=== PATIENT | female | born 1955 | race Caucasian/White ===

== ENCOUNTER 2017-08-09 00:25 | Observation (INO) | payer BC, OTHER ==
[~2017-08-09] VITALS: Ht 170.2 cm; Wt 102.0 kg
[2017-08-09] VITALS (9 sets, daily range): BP systolic 131–198; BP diastolic 78–112; PULSE 55–85; TEMP 36.5–36.7; O2SAT 94–97; BMI 35.6
[2017-08-09] MEDS ORDERED: GLC/500 PO (01:33)
[2017-08-09 01:42] LABS: BASO % 0.4 %; BASO ABS # 0.04 K/uL (0-0.2); EOS % 2.3 %; EOS ABS # 0.22 K/uL (0-0.5); HEMATOCRIT 42.1 % (37-47); HEMOGLOBIN 14.4 g/dL (12.0-16.0); IG# 0.03 K/uL (0.00-0.02); LYMPH % 20.1 %; LYMPH ABS # 1.89 K/uL (1.2-3.4); MEAN CELL VOLUME 85.4 fL (80-100); MEAN CORPUSCULAR HEMOGLOBIN 29.2 pg (25-34); MEAN CORPUSCULAR HGB CONC 34.2 g/dl (32-36); MONO % 6.9 %; MONO ABS # 0.65 K/uL (0.11-0.59); NEUT ABS # 6.55 K/uL (1.4-6.5); PLATELET COUNT 310 K/uL (130-400); RED CELL DISTRIBUTION WIDTH CV 12.6 % (11.5-14.5); RED CELL DISTRIBUTION WIDTH SD 38.9 fL (36.4-46.3); WHITE BLOOD COUNT 9.38 K/uL (4.8-10.8)
[2017-08-09 02:20] LABS: ALBUMIN 3.6 gm/dl (3.4-5.0); ALKALINE PHOSPHATASE 91 U/L (45-117); ALT/SGPT 31 U/L (12-78); AST/SGOT 17 U/L (15-37); BLOOD UREA NITROGEN 15 mg/dl (7-18); CALCIUM 8.2 mg/dl (8.5-10.1); CARBON DIOXIDE 26 mmol/L (21-32); CKMB 3.8 ng/ml (0.5-3.6); CREATININE 1.04 mg/dl (0.60-1.20); GLUCOSE 363 mg/dl (70-99); POTASSIUM 3.8 mmol/L (3.5-5.1); SODIUM 135 mmol/L (136-145); TOTAL PROTEIN 7.3 gm/dl (6.4-8.2)
[2017-08-09 02:22] LABS: INFLUENZA B ANTIGEN Neg for Influ B (NEG)
[2017-08-09] MEDS ORDERED: INSULIN GLARGINE SOLOSTAR 100 UNITS/ML 3 ML PEN SC ONE ×2 (02:57→08:05)
[2017-08-09] MEDS ORDERED: NSS + 20MEQ KCL 1000ML 1,000 ML IV SCH ×2 (03:00→04:45)
[2017-08-09] MEDS ORDERED: LISINOPRIL 5 MG TAB PO ONE (03:28)
[2017-08-09] MEDS ORDERED: ALBUT/IPRATROP 3MG/0.5MG NEB 3 ML VIAL INH STA (03:44)
[2017-08-09] MEDS ORDERED: GLUCAGON FOR INJ 1 MG VIAL SQ PRN (03:45)
[2017-08-09] MEDS ORDERED: MoRPHine SULFATE 4 MG/ML 1 ML CARP\\VIAL IV PRN (03:45)
[2017-08-09] MEDS ORDERED: PROCHLORPERAZINE INJ 5 MG in SYRINGE 4 ML IV PRN (03:45)
[2017-08-09] MEDS ORDERED: TRAMADOL HCL 50 MG TAB PO PRN (03:45)
[2017-08-09] MEDS ORDERED: LORAZEPAM 2 MG/ML 1 ML VIAL IV PRN (03:45)
[2017-08-09] MEDS ORDERED: NITROGLYCERIN 0.4 MG SL PER TAB CHARGE SL PRN (03:45)
[2017-08-09] MEDS ORDERED: DEXTROSE 50% 50 ML SYR IV PRN (03:45)
[2017-08-09] MEDS ORDERED: GLUCOSE 40% GEL 15 GM TUBE PO PRN (03:45)
[2017-08-09] MEDS ORDERED: ACETAMINOPHEN 325 MG TAB PO PRN (03:45)
[2017-08-09] MEDS ORDERED: GLUCOSE 10 TABS/TUBE PO PRN (03:45)
[2017-08-09] MEDS ORDERED: INSULIN ASPART 100 UNITS/ML 3 ML PEN SC STA (04:03)
[2017-08-09] MEDS ORDERED: CALCIUM GLUCONATE 10% 1,000 MG in SODIUM CHLORIDE 0.9% 50ML 50 ML IV STA (04:03)
[2017-08-09 04:28] LABS: PTT PATIENT 27.4 SECONDS (21.0-31.0)
[2017-08-09] MEDS ORDERED: DOXYCYCLINE HYCLATE 100 MG CAP PO STA (04:35)
[2017-08-09] MEDS ORDERED: LISINOPRIL 5 MG TAB PO STA (04:35)
[2017-08-09] MEDS ORDERED: LORAZEPAM INJ 0.5 MG in SYRINGE 0.75 ML IV PRN (05:00)
[2017-08-09] MEDS ORDERED: OPTIRAY 320 IV PRN (05:00)
--- NOTE | 2017-08-09 07:09 | DIAGNOSTIC IMAGING REPORT ---
CT ANGIOGRAPHY OF THE CHEST, PULMONARY EMBOLUS PROTOCOL CLINICAL HISTORY: Chest pain, shortness of breath and cough. COMPARISON STUDY: Chest radiograph August 09, 2017. TECHNIQUE: Following IV administration of 93 mL of Optiray-320, helical axial images of the chest were obtained utilizing the pulmonary embolus protocol. Maximal intensity projections and sagittal and coronal reformats were viewed on an independent 3D workstation. IV contrast was administered without complication. A dose lowering technique was utilized adhering to the principles of ALARA. CT DOSE: 626.42 mGy.cm FINDINGS: No pulmonary emboli are identified. There is no evidence for thoracic aortic dissection. The heart is mildly enlarged. There is moderate coronary artery calcification. There is no pericardial effusion. No enlarged thoracic lymph nodes are present. There is mild lingular airspace opacity suggestive of pneumonia. Central airways are patent. There is no cavitation or pleural effusion. No pneumothorax is present. Bony thorax is unremarkable. Upper abdomen is unremarkable. There is mild esophageal wall thickening. IMPRESSION: 1. No pulmonary emboli identified. 2. Mild lingular consolidation consistent with pneumonia. 3. Mild circumferential esophageal wall thickening which may reflect esophagitis. Electronically signed by: Saravanan Nicolas M.D. 08/09/2017 7:08 AM Dictated Date/Time: 08/09/2017 7:02 AM
--- NOTE | 2017-08-09 07:10 | DIAGNOSTIC IMAGING REPORT ---
CHEST 2 VIEWS ROUTINE CLINICAL HISTORY: Cough and shortness of breath. COMPARISON STUDY: No previous studies for comparison. FINDINGS: Lung volumes are normal. No pneumothorax or pleural effusion is present. There is minimal left lower lung opacity. Right lung is clear. There is no evidence for pulmonary edema. Cardiac size is normal. Mediastinal contours are normal. IMPRESSION: Mild left lower lung opacity which could reflect pneumonia or atelectasis. Electronically signed by: Saravanan Nicolas M.D. 08/09/2017 7:08 AM Dictated Date/Time: 08/09/2017 7:08 AM
[2017-08-09] MEDS: LISINOPRIL 5 MG TAB PO SCH (07:31)
[2017-08-09] MEDS: ASPIRIN 325 MG ECTAB PO SCH (07:32)
[2017-08-09 07:42] LABS: HEMOGLOBIN A1C 12.3 % (4.5-5.6)
[2017-08-09] MEDS ORDERED: IV FLUIDS COMPLETED PRN (08:15)
--- NOTE | 2017-08-09 08:22 | EMERGENCY ROOM VISIT NOTE ---
History Report prepared by Keaton: Farhana Strickland Under the Supervision of: Dr. Carmelita Mesa D.O. First contact with patient: 00:39 Chief Complaint: RESPIRATORY PROBLEMS Stated Complaint: DIFFICULTY BREATHING Nursing Triage Summary: Chest congestion for a week, head congestion Friday, wheezing and dyspnea starting 2100. HTN. History of Present Illness The patient is a 62 year old female who presents to the Emergency Room with complaints of worsening respiratory problems starting an hour ago. The patient states that she has had chest congestion, but woke up with it moving into her head yesterday morning. She states that this evening she became short of breath and wheezy. She states that she felt like her chest felt heavy. The patient complains of a cough. The patient notes that her grand kids have been sick recently. The patient notes a history of white coat syndrome that leads to significant hypertension. Source of History: patient Onset: an hour ago Position: other (global) Quality: other (heaviness) Timing: worsening Associated Symptoms: + cough, No chest pain Note: The patient complains of nasal congestion. Review of Systems See HPI for pertinent positives & negatives. A total of 10 systems reviewed and were otherwise negative. Past Medical & Surgical Medical Problems: (1) Chest pain (2) HTN (hypertension) (3) Stroke Family History Diabetes mellitus Hypertension Social History Smoking Status: Never Smoker Marital Status: Housing Status: lives with significant other Occupation Status: employed Current/Historical Medications Scheduled Metformin Hcl (Glucophage), 500 MG PO BID Allergies Coded Allergies: No Known Allergies (Unverified , 08/09/17) Physical Exam Vital Signs Date Time Temp Pulse Resp B/P (MAP) Pulse Ox O2 Delivery O2 Flow Rate FiO2 08/09/17 02:13 78 20 165/106 96 08/09/17 01:31 81 20 174/ 92 08/09/17 00:55 81 08/09/17 00:52 91 26 219/109 93 Room Air 08/09/17 00:31 36.7 96 20 212/125 98 Room Air Physical Exam HEENT: Head - normocephalic and atraumatic Pupils are equal, round, and reactive to light. Extraocular eye muscles are intact, and sclera are anicteric. Nose - moist nasal mucosa without discharge. Mouth - moist buccal mucosa. Oropharynx is nonerythematous and there is no tonsillar exudate or edema noted. Neck: Supple; no JVD, nuchal rigidity, cervical lymphadenopathy, or auscultated bruits. Heart: Tachycardic rate and regular rhythm. There is a normal S1 and S2 with no murmurs, clicks, or gallops appreciated. Lungs: Clear to auscultation bilaterally with no wheezes, rales, or rhonchi. Abdomen: Soft, completely nontender, nondistended, with good bowel sounds. There are no palpable pulsatile masses or hepatosplenomegaly. There is no guarding, rigidity, or rebound noted. Extremities: No evidence of cyanosis, clubbing, or edema. There are easily palpable peripheral pulses. Skin: warm and dry with good turgor and no rashes. Medical Decision & Procedures ER Provider Diagnostic Interpretation: CHEST X-RAY: The results were interpreted by me. No obvious pulmonary infiltrate or consolidation. Moderate peribronchial cuffing with some haziness in the left lower lobe. Laboratory Results 08/09/17 01:20 Red Blood Count 4.93, Mean Corpuscular Volume 85.4, Mean Corpuscular Hemoglobin 29.2, Mean Corpuscular Hemoglobin Concent 34.2, Mean Platelet Volume 10.0, Neutrophils (%) (Auto) 70.0, Lymphocytes (%) (Auto) 20.1, Monocytes (%) (Auto) 6.9, Eosinophils (%) (Auto) 2.3, Basophils (%) (Auto) 0.4, Neutrophils # (Auto) 6.55, Lymphocytes # (Auto) 1.89, Monocytes # (Auto) 0.65, Eosinophils # (Auto) 0.22, Basophils # (Auto) 0.04 08/09/17 01:20 Test 08/09/17 01:20 White Blood Count 9.38 K/uL (4.8-10.8) Red Blood Count 4.93 M/uL (4.2-5.4) Hemoglobin 14.4 g/dL (12.0-16.0) Hematocrit 42.1 % (37-47) Mean Corpuscular Volume 85.4 fL (80-100) Mean Corpuscular Hemoglobin 29.2 pg (25-34) Mean Corpuscular Hemoglobin Concent 34.2 g/dl (32-36) Platelet Count 310 K/uL (130-400) Mean Platelet Volume 10.0 fL (7.4-10.4) Neutrophils (%) (Auto) 70.0 % Lymphocytes (%) (Auto) 20.1 % Monocytes (%) (Auto) 6.9 % Eosinophils (%) (Auto) 2.3 % Basophils (%) (Auto) 0.4 % Neutrophils # (Auto) 6.55 K/uL (1.4-6.5) Lymphocytes # (Auto) 1.89 K/uL (1.2-3.4) Monocytes # (Auto) 0.65 K/uL (0.11-0.59) Eosinophils # (Auto) 0.22 K/uL (0-0.5) Basophils # (Auto) 0.04 K/uL (0-0.2) RDW Standard Deviation 38.9 fL (36.4-46.3) RDW Coefficient of Variation 12.6 % (11.5-14.5) Immature Granulocyte % (Auto) 0.3 % Immature Granulocyte # (Auto) 0.03 K/uL (0.00-0.02) Activated Partial Thromboplast Time 27.4 SECONDS (21.0-31.0) Partial Thromboplastin Ratio 1.1 D-Dimer 540 ug/L FEU (0-500) Anion Gap 7.0 mmol/L (3-11) Est Creatinine Clear Calc Drug Dose 68.3 ml/min Estimated GFR () 66.2 Estimated GFR (Non- 57.1 BUN/Creatinine Ratio 14.7 (10-20) Estimated Average Glucose 306 mg/dl Hemoglobin A1c 12.3 % (4.5-5.6) Calcium Level 8.2 mg/dl (8.5-10.1) Magnesium Level 1.8 mg/dl (1.8-2.4) Total Bilirubin 0.4 mg/dl (0.2-1) Aspartate Amino Transf (AST/SGOT) 17 U/L (15-37) Alanine Aminotransferase (ALT/SGPT) 31 U/L (12-78) Alkaline Phosphatase 91 U/L (45-117) Total Creatine Kinase 132 U/L (26-192) Creatine Kinase MB 3.8 ng/ml (0.5-3.6) Creatine Kinase MB Ratio 2.9 (0-3.0) Pro-B-Type Natriuretic Peptide 275 pg/ml (0-900) Total Protein 7.3 gm/dl (6.4-8.2) Albumin 3.6 gm/dl (3.4-5.0) Globulin 3.7 gm/dl (2.5-4.0) Albumin/Globulin Ratio 1.0 (0.9-2) Beta-Hydroxybutyric Acid 3.15 mg/dL (0.2-2.81) Thyroid Stimulating Hormone (TSH) 3.050 uIu/ml (0.300-4.500) Influenza Type A Antigen Neg for Influ A (NEG) Influenza Type B Antigen Neg for Influ B (NEG) Laboratory results per my review. Medications Administered Medications (Trade) Dose Ordered Sig/Arsen Route Start Time Stop Time Status Last Admin Dose Admin Insulin Glargine (Lantus Solostar Pen) 20 units 0257 ONCE SC 08/09/17 02:57 08/09/17 03:04 DC 08/09/17 03:48 20 UNITS ECG Indication: chest pain Rate (beats per minute): 87 Rhythm: normal sinus Findings: PAC, ST depression (leads 1, aVL, V4, V5, and V6) ED Course 0039: Past medical records reviewed. The patient was evaluated in room B2. A complete history and physical exam was performed. An IV lock was initiated and labs were drawn as above. A twelve-lead EKG was obtained as described above. The patient went for chest x-ray 0102: I interpreted the patient's EKG at this time. Vital signs remain stable. 0254: Discussed the patient's case with Dr. Tobias. The patient will be evaluated for further management. 0256: I reevaluated the patient and the chest pressure is gone. I went over everything with her. Medical Decision The patient is a 62 year old female who presents to the Emergency Room with complaints of worsening respiratory problems starting an hour ago. Differential diagnoses include bronchitis, DKA, pneumonia, CHF, influenza, cardiac ischemia. LABS: White blood cell 9.3 Stable H&H Negative influenza Blood sugar 363 with BHA of 3.15 Normal LFTs Normal renal function Negative cardiac enzymes BNP 275 ABG: PH 7.4 PCO 2.37 PO 2.75 Bicarb 24 No obvious acidosis This is a 62-year-old female patient who presents to the emergency department tonight complaining of increasing shortness of breath, cough, and chest heaviness. The patient was noted to have ST segment depression in the lateral leads. We have no previous EKG for comparison. We attempted to obtain one from [facility] but they haven't a record of an EKG being performed. The patient's chest heaviness seemed to subside on its own. Patient was significantly hypertensive while here in the ER. She was also significantly hyperglycemic with an elevated BHA. ABG was not consistent with DKA Medication Reconcilliation Current Medication List: was personally reviewed by me Blood Pressure Screening Patient's blood pressure: Elevated blood pressure Will be further monitored by the hospitalist. Consults Time Called: 025 Consulting Physician: Dr. Jatinder Geller Hospitalist Returned Call: 025 Discussed the patient's case with Dr. Tobias. The patient will be evaluated for further management. Impression Primary Impression: Chest heaviness Additional Impressions: Acute electrocardiogram changes Hyperglycemia Scribe Attestation The scribe's documentation has been prepared under my direction and personally reviewed by me in its entirety. I confirm that the note above accurately reflects all work, treatment, procedures, and medical decision making performed by me. Departure Information Dispostion Being Evaluated By Hospitalist Referrals No Doctor, Assigned (PCP) Patient Instructions My [facility] Problem Qualifiers
[2017-08-09] MEDS: ENOXAPARIN 40 MG/0.4 ML SYR SC SCH (08:47)
--- NOTE | 2017-08-09 08:56 | ECHOCARDIOGRAM REPORT ---
*NOTICE TO RECEIVING CONSTITUTION PARTY AGENCY This information is strictly Confidential and protected under [place] law. [place] law prohibits you from making any further disclosure of this information unless further disclosure is expressly permitted by the written consent of the person to whom it pertains or is authorized by law. A general authorization for the release of medical or other information is not sufficient for this purpose. Hospital accepts no responsibility if the information is made available to any other person, INCLUDING THE PATIENT. Interpretation Summary * Name: EMELY RUFF Study Date: 08/09/2017 06:23 AM BP: 198/88 mmHg * Patient Location: [facility] HR: 81 * : 1955 (M/d/yyyy) Gender: Female Height: 67 in * Age: 62 yrs Ethnicity: CA Weight: 227 lb * Ordering Physician: Conrad Tobias * Referring Physician: Self, Referred * Performed By: Yarelis More RDCS * * Reason For Study: Chest pain * BSA: 2.1 m2 * -- Conclusions -- * There is borderline concentric left ventricular hypertrophy. * The left ventricular wall motion is normal. * Ejection Fraction = 55-60%. * The right ventricle is normal in size and function. * Doppler findings do not suggest pulmonary hypertension. * Grade I diastolic dysfunction, (abnormal relaxation pattern). * Aortic valve sclerosis mild, without significant aortic valvular stenosis. * There is mild mitral annular calcification. * Significant mitral regurgitation is absent. * There is no mitral valve stenosis. Procedure Details * A complete two-dimensional transthoracic echocardiogram was performed (2D, M-mode, Doppler and color flow Doppler). Left Ventricle * The left ventricle is normal in size. * There is borderline concentric left ventricular hypertrophy. * Ejection Fraction = 55-60%. * Left ventricular systolic function is normal. * The left ventricular wall motion is normal. Right Ventricle * The right ventricle is normal in size and function. * The right ventricular systolic function is normal as assessed by tricuspid annular plane systolic excursion (TAPSE) (normal >1.5 cm). Atria * The left atrial size is normal. * Right atrial size is normal. * There is no evidence of atrial septal defect, but resolution does not allow assessment for a patent foramen ovale. Mitral Valve * There is mild mitral annular calcification. * There is no mitral valve stenosis. * Significant mitral regurgitation is absent. Tricuspid Valve * The tricuspid valve is normal. * There is no tricuspid stenosis. * Significant tricuspid regurgitation is absent. * Doppler findings do not suggest pulmonary hypertension. Aortic Valve * The aortic valve is trileaflet. * Aortic valve sclerosis mild, without significant aortic valvular stenosis. * Aortic stenosis is absent. * There is no significant aortic regurgitation. Pulmonic Valve * The pulmonary valve is not well seen, but the Doppler examination is normal without significant regurgitation or stenosis. Great Vessels * The aortic root and proximal ascending aorta are normal sized. Pericardium/Pleural * There is no pericardial effusion. Great Vessels * Normal inferior vena cava diameter and respiratory variation suggests normal central venous pressure. Left Ventricular Diastolic Function * Grade I diastolic dysfunction, (abnormal relaxation pattern). MMode 2D Measurements and Calculations IVSd 1.2 cm LVIDd 4.3 cm LVIDs 3.0 cm LVPWd 1.1 cm IVS/LVPW 1.1 FS 29.1 % EDV(Teich) 81.0 ml ESV(Teich) 35.5 ml EF(Teich) 56.2 % EDV(cubed) 77.0 ml ESV(cubed) 27.4 ml EF(cubed) 64.3 % LV mass(C)d 176.4 grams LV mass(C)dI 82.7 grams/m\S\2 SV(Teich) 45.5 ml SI(Teich) 21.3 ml/m\S\2 SV(cubed) 49.5 ml SI(cubed) 23.2 ml/m\S\2 Ao root diam 2.6 cm Ao root area 5.2 cm\S\2 ACS 2.3 cm LA dimension 3.9 cm asc Aorta Diam 2.8 cm LA/Ao 1.5 LVOT diam 2.0 cm LVOT area 3.0 cm\S\2 LVAd ap4 24.7 cm\S\2 LVLd ap4 7.5 cm EDV(MOD-sp4) 67.9 ml EDV(sp4-el) 68.6 ml LVAs ap4 15.1 cm\S\2 LVLs ap4 6.6 cm ESV(MOD-sp4) 30.0 ml ESV(sp4-el) 29.6 ml EF(MOD-sp4) 55.9 % EF(sp4-el) 56.9 % LVAd ap2 19.1 cm\S\2 LVLd ap2 6.4 cm EDV(MOD-sp2) 45.8 ml EDV(sp2-el) 48.2 ml LVAs ap2 11.2 cm\S\2 LVLs ap2 5.3 cm ESV(MOD-sp2) 19.5 ml ESV(sp2-el) 20.2 ml EF(MOD-sp2) 57.4 % EF(sp2-el) 58.1 % LVLd %diff -17.53 % EDV(MOD-bp) 58.9 ml LVLs %diff -24.48 % ESV(MOD-bp) 25.3 ml EF(MOD-bp) 57.1 % SV(MOD-sp4) 38.0 ml SI(MOD-sp4) 17.8 ml/m\S\2 SV(MOD-sp2) 26.3 ml SI(MOD-sp2) 12.3 ml/m\S\2 SV(MOD-bp) 33.6 ml SI(MOD-bp) 15.8 ml/m\S\2 SV(sp4-el) 39.0 ml SI(sp4-el) 18.3 ml/m\S\2 SV(sp2-el) 28.0 ml SI(sp2-el) 13.1 ml/m\S\2 Doppler Measurements and Calculations MV E max lila 79.3 cm/sec MV A max lila 88.4 cm/sec MV E/A 0.90 MV dec time 0.31 sec Ao V2 max 148.3 cm/sec Ao max PG 8.8 mmHg Ao max PG (full) 4.5 mmHg DIMA(V,A) 2.1 cm\S\2 DIMA(V,D) 2.1 cm\S\2 LV V1 max PG 4.3 mmHg LV V1 max 103.5 cm/sec PA V2 max 82.8 cm/sec PA max PG 2.7 mmHg PA acc slope 534.9 cm/sec\S\2 PA acc time 0.13 sec PI end-d lila 119.1 cm/sec TR max lila 116.5 cm/sec PA pr(Accel) 22.8 mmHg
[2017-08-09] MEDS ORDERED: INFLUENZA VIRUS QUAD VACCINE 0.5 ML SYR IM. ONE (09:00)
[2017-08-09] MEDS ORDERED: INFLUENZA ADMINISTRATION CHARGE ONE (09:00)
[2017-08-09] MEDS ORDERED: MAGNESIUM SULFATE 1GM / D5W 1 GM in PREMIXED IN D5W 100 ML IV ONE (09:30)
--- NOTE | 2017-08-09 10:08 | HISTORY & PHYSICAL EXAMINATION ---
DATE OF ADMISSION: 08/09/2017 PRIMARY CARE DOCTOR: Dr. Hawthorne. CHIEF COMPLAINT: Chest tightness and shortness of breath. HISTORY OF PRESENT ILLNESS: History obtained from patient, family, ER provider. Medical history is significant for CVA, hypertension (currently not on meds), DM2 on oral medications. In the last few days, the patient noted sinus congestion symptoms going to her chest, later complaining of chest tightness, cough productive of yellow sputum, unable to catch her breath. May have been around sick people. Denies flu-like symptoms. Chest tightness from congestion. Denies aspiration. Patient was brought to the Emergency Room. Initial chest tightness currently resolved. MEDICAL HISTORY: As above. She had a stroke in the right side of her body in 2006, where she was confined in [place]. No TPA. She stopped her lisinopril 6 months ago after PCP told her she could because her blood pressure had been good after significant weight loss. Patient thinks she suffers from "white coat hypertension. Usual blood sugars at home 130s as per patient. Admits to not taking her blood sugars regularly. Last hemoglobin A1c from last year was 6 as per patient. Has not had recent seasonal flu vaccines. HOME MEDICATIONS: Include aspirin, metformin. ALLERGIES: No known drug allergies. FAMILY HISTORY: Diabetes. 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 REVIEW OF SYSTEMS: As per history of present illness, all 10 systems reviewed, All other ROS negative. PHYSICAL EXAMINATION: VITAL SIGNS: Blood pressure was noted to be 212/125 later 160/80, AL 80, RR 24 T 37 sats 98% on room air. GENERAL: Noted to be slightly anxious. Obese, pleasant, no distress. SKIN: Normal color. Warm. HEENT: [place] palpebral conjunctivae. No ptosis. Dry mucosa. NECK: Short neck. Nontender. CHEST: No anterior chest wall tenderness. Occasional wheeze. HEART: Regular rate and rhythm. No murmur. ABDOMEN: Some distension and nontender. EXTREMITIES: No edema. No gross deformities. No tenderness. NEUROLOGIC: Coherent, no gross focality. LABORATORY DATA: Hemoglobin was noted to be 14.5, white cell count 9.38 platelets 310. Sodium noted to be 135, potassium 3.8, chloride 102, CO2 of 26, BUN 50, creatinine 1, and glucose 383. Normal anion gap. Troponin negative. D-dimer was abnormal. EKG as per my interpretation, 90, normal sinus rhythm, T-wave flattening in the lateral leads. PVCs. Chest x-ray as per my interpretation, atelectasis. ASSESSMENT: 1. Chest tightness, shortness of breath secondary to complicated bronchitis. No sepsis. Rule out pulmonary embolism 2. Hypertensive urgency secondary to illness, anxiety unknown control at home. Patient has been off home FREDI inhibitor the last 6 months because blood pressure has been good after losing weight as per patient account. 3. DM2 on oral meds. Blood sugars elevated. Unknown control at home. 4. History of cerebrovascular accident on ASA. PLAN: OBS PCU. Doxycycline. nebs CT chest, PE study. 2D echo RE chest tightness Patient agreeable to re-starting home lisinopril. Basal insulin, ISS BG goal 140-180 Check hemoglobin A1c. Diabetic education DVT prophylaxis, Lovenox subQ. Full code. MTDD
[2017-08-09] MEDS: INSULIN ASPART 100 UNITS/ML 3 ML PEN SC SCH ×3 (12:02→20:37)
[2017-08-09 16:41] LABS: INFLUENZA A PCR Neg for Influ A (NEG); INFLUENZA B PCR Neg for Influ B (NEG)
--- NOTE | 2017-08-09 16:49 | Progress Note ---
Medicine Progress Note Date & Time of Visit: Aug 09, 2017 at 13:40 . Subjective CC: Follow-up visit for pneumonia, elevated blood sugars, elevated blood pressure. HPI: Feels better. No fever. Cough improved. No chest pain. Blood sugars better. ROS: General- as noted above in HPI Resp- as noted above in HPI Cardiac- as noted above in HPI GI- no nausea, no vomiting, no diarrhea - no dysuria, no difficulty voiding . Objective Last 8 Hrs Date Time Temp Pulse Resp B/P (MAP) Pulse Ox O2 Delivery O2 Flow Rate FiO2 08/09/17 16:00 Room Air 08/09/17 15:19 36.6 79 18 163/93 (116) 96 Room Air 08/09/17 12:18 36.5 85 16 154/112 (126) 96 Room Air 08/09/17 12:00 Room Air Physical Exam: General- sitting in chair; no distress Lungs- few rhonchi; no respiratory distress Cardiovascular- RRR; no gallop; no JVD; no pretibial edema Abdomen- + bowel sounds, soft, nontender Extremities- no cyanosis; no calf tenderness Neuro- alert, oriented Skin- warm & dry . Laboratory Results: Last 24 Hours Test 08/09/17 00:00 08/09/17 01:20 08/09/17 03:50 08/09/17 04:10 Influenza Type A (RT-PCR) Neg for Influ A Influenza Type B (RT-PCR) Neg for Influ B White Blood Count 9.38 K/uL Red Blood Count 4.93 M/uL Hemoglobin 14.4 g/dL Hematocrit 42.1 % Mean Corpuscular Volume 85.4 fL Mean Corpuscular Hemoglobin 29.2 pg Mean Corpuscular Hemoglobin Concent 34.2 g/dl Platelet Count 310 K/uL Mean Platelet Volume 10.0 fL Neutrophils (%) (Auto) 70.0 % Lymphocytes (%) (Auto) 20.1 % Monocytes (%) (Auto) 6.9 % Eosinophils (%) (Auto) 2.3 % Basophils (%) (Auto) 0.4 % Neutrophils # (Auto) 6.55 K/uL Lymphocytes # (Auto) 1.89 K/uL Monocytes # (Auto) 0.65 K/uL Eosinophils # (Auto) 0.22 K/uL Basophils # (Auto) 0.04 K/uL RDW Standard Deviation 38.9 fL RDW Coefficient of Variation 12.6 % Immature Granulocyte % (Auto) 0.3 % Immature Granulocyte # (Auto) 0.03 K/uL Activated Partial Thromboplast Time 27.4 SECONDS Partial Thromboplastin Ratio 1.1 D-Dimer 540 ug/L FEU Sodium Level 135 mmol/L Potassium Level 3.8 mmol/L Chloride Level 102 mmol/L Carbon Dioxide Level 26 mmol/L Anion Gap 7.0 mmol/L Blood Urea Nitrogen 15 mg/dl Creatinine 1.04 mg/dl Est Creatinine Clear Calc Drug Dose 68.3 ml/min Estimated GFR () 66.2 Estimated GFR (Non- 57.1 BUN/Creatinine Ratio 14.7 Random Glucose 363 mg/dl Estimated Average Glucose 306 mg/dl Hemoglobin A1c 12.3 % Calcium Level 8.2 mg/dl Magnesium Level 1.8 mg/dl Total Bilirubin 0.4 mg/dl Aspartate Amino Transf (AST/SGOT) 17 U/L Alanine Aminotransferase (ALT/SGPT) 31 U/L Alkaline Phosphatase 91 U/L Total Creatine Kinase 132 U/L Creatine Kinase MB 3.8 ng/ml Creatine Kinase MB Ratio 2.9 Troponin I < 0.015 ng/ml Pro-B-Type Natriuretic Peptide 275 pg/ml Total Protein 7.3 gm/dl Albumin 3.6 gm/dl Globulin 3.7 gm/dl Albumin/Globulin Ratio 1.0 Beta-Hydroxybutyric Acid 3.15 mg/dL Thyroid Stimulating Hormone (TSH) 3.050 uIu/ml Influenza Type A Antigen Neg for Influ A Influenza Type B Antigen Neg for Influ B Bedside Glucose 355 mg/dl Arterial Blood pH 7.42 Arterial Blood Partial Pressure CO2 37 mmHg Arterial Blood Partial Pressure O2 75 mm/Hg Arterial Blood HCO3 24 mmol/L Arterial Blood Oxygen Saturation 94.9 % Arterial Blood Base Excess -0.6 mEq/L Arterial Blood Gas Delivery ROOM AIR Leonardo Test POS Triglycerides Level 212 mg/dl Cholesterol Level 151 mg/dl HDL Cholesterol 28 mg/dl LDL Cholesterol, Calculated 81 mg/dl VLDL Cholesterol, Calculated 42 mg/dl Cholesterol/HDL Ratio 5.4 Test 08/09/17 04:57 08/09/17 05:13 08/09/17 06:48 08/09/17 08:00 Bedside Glucose 323 mg/dl 253 mg/dl Prothrombin Time 10.2 SECONDS Prothromb Time International Ratio 1.0 Troponin I < 0.015 ng/ml Test 08/09/17 11:22 Bedside Glucose 274 mg/dl Other Studies: EKG performed at 09:43 reviewed and demonstrated NSR at 80 / minute, PVC's, lateral inverted / biphasic T-waves. . Assessment & Plan PNEUMONIA Presented to ED with cough. Influenza Ag negative. Chest x-ray showed left mid-lung infiltrate. CT chest confirmed lingular infiltrate. CHEST DISCOMFORT Associated with coughing. Troponins negative. EKG showed non-specific ST / T-wave changes laterally. Echo showed mild LVH, no segmental wall motion abnormalities. CTA chest negative for PE. HYPERTENSIVE URGENCY History of "white coat hypertension." Had been on lisinopril in past, but it was discontinued.BP 212/125 in ED. Lisinopril restarted. BP this morning 160/88. Follow and titrate therapy. CEREBROVASCULAR DISEASE History of stroke several years ago. Not taking aspirin or statin at this time. ESOPHAGEAL THICKENING Mild esophageal wall thickening noted on CT chest. No reflux symptoms or dysphagia. Outpatient EGD recommended. DM TYPE 2 WITH HYPERGLYCEMIA History of DM type 2, reportedly well-controlled, managed with metformin at home. Random blood sugar in ED was 363. Hgb A1C = 12.3. Hold metformin during hospital stay. Lantus / NovoLog per protocol. FBS today = 253. VTE PROPHYLAXIS SQ enoxaparin. Ambulate. DISPOSITION Expected discharge to home. Medical follow-up with Dr. Hawthorne. . Current Inpatient Medications: Current Inpatient Medications Medications (Trade) Dose Ordered Sig/Arsen Route Start Time Stop Time Status Last Admin Dose Admin Aspirin (Ecotrin Tab) 325 mg QAM PO 08/09/17 09:00 09/08/17 08:59 08/09/17 07:32 325 MG Lisinopril (Zestril Tab) 5 mg QAM PO 08/09/17 09:00 09/08/17 08:59 08/09/17 07:31 5 MG Doxycycline Hyclate (Vibramycin Cap) 100 mg BID PO 08/09/17 21:00 08/16/17 20:59 Potassium Chloride/Sodium Chloride 1,000 ml @ 80 mls/hr [id number] IV 08/09/17 04:45 08/09/17 17:14 08/09/17 04:59 80 MLS/HR Enoxaparin Sodium (Lovenox Inj) 40 mg Q24H SC 08/09/17 08:00 09/08/17 07:59 08/09/17 08:47 40 MG Acetaminophen (Tylenol Tab) 650 mg Q4H PRN PO 08/09/17 03:45 09/08/17 03:44 Nitroglycerin (Nitrostat Tab) 0.4 mg UD PRN SL 08/09/17 03:45 09/08/17 03:44 Insulin Aspart (novoLOG ASPART) SLIDING SCALE If C... ACHS SC 08/09/17 11:00 09/08/17 10:59 08/09/17 12:02 7 UNITS Glucose (Glucose 40% Gel) 15-30 GRAMS 15 GRAMS... UD PRN PO 08/09/17 03:45 09/08/17 03:44 Glucose (Glucose Chew Tab) 4-8 Tablets 4 Tabl... UD PRN PO 08/09/17 03:45 09/08/17 03:44 Dextrose (Dextrose 50% 50ML Syringe) 25-50ML OF 50% DW IV FOR... UD PRN IV 08/09/17 03:45 09/08/17 03:44 Glucagon (Glucagon Inj) 1 mg UD PRN SQ 08/09/17 03:45 09/08/17 03:44 Lorazepam (Ativan Inj) 0.5 mg Q4H PRN IV 08/09/17 03:45 09/08/17 03:44 Tramadol HCl (Ultram Tab) not relieved ... Q6H PRN PO 08/09/17 03:45 09/08/17 03:44 Morphine Sulfate (MoRPHine SULFATE INJ) 4 mg Q3H PRN IV 08/09/17 03:45 08/23/17 03:44 Albuterol/ Ipratropium (Duoneb) 3 ml Q2H PRN INH 08/09/17 03:45 09/08/17 03:44 Prochlorperazine Edisylate 5 mg/ Syringe 5 ml @ 5 mls/min Q6H PRN IV 08/09/17 03:45 09/08/17 03:44 Ioversol (Optiray 320) 100 ml UD PRN IV 08/09/17 05:00 08/13/17 04:59 Lorazepam 0.5 mg/ Syringe 1 ml @ 1 mls/min Q4H PRN IV 08/09/17 05:00 09/08/17 04:59 Insulin Glargine (Lantus Solostar Pen) 40 units DAILY SC 08/10/17 09:00 09/09/17 08:59 Miscellaneous (Iv Fluids Completed) 1 ea PRN PRN N/A 08/09/17 08:15 08/09/18 08:14
[2017-08-09] MEDS: CEFTRIAXONE SOD INJ 2,000 MG in DEXTROSE 5% 50ML 50 ML IV SCH (17:57)
[2017-08-09] MEDS: DOXYCYCLINE HYCLATE 100 MG CAP PO SCH (20:37)
[2017-08-09] MEDS: INSULIN GLARGINE SOLOSTAR 100 UNITS/ML 3 ML PEN SC SCH (20:40)
[2017-08-09] MEDS ORDERED: COUGH DROP (SUGAR FREE) LOZ 24 LOZ/1 BOX LOZ ONE (20:43)
[2017-08-09] MEDS ORDERED: DOXYCYCLINE HYCLATE 100 MG CAP PO SCH (21:00)
[2017-08-10 07:08] VITALS: BP 154/82; PULSE 60; TEMP 36.3; O2SAT 97
[2017-08-10 07:13] LABS: BASO % 0.4 %; BASO ABS # 0.03 K/uL (0-0.2); EOS % 3.8 %; HEMATOCRIT 43.4 % (37-47); HEMOGLOBIN 14.7 g/dL (12.0-16.0); IG# 0.02 K/uL (0.00-0.02); LYMPH % 26.1 %; LYMPH ABS # 2.06 K/uL (1.2-3.4); MEAN CELL VOLUME 86.1 fL (80-100); MEAN CORPUSCULAR HEMOGLOBIN 29.2 pg (25-34); MEAN CORPUSCULAR HGB CONC 33.9 g/dl (32-36); MEAN PLATELET VOLUME 9.8 fL (7.4-10.4); MONO % 9.9 %; MONO ABS # 0.78 K/uL (0.11-0.59); NEUT % 59.5 %; PLATELET COUNT 316 K/uL (130-400); RED CELL DISTRIBUTION WIDTH CV 12.9 % (11.5-14.5); RED CELL DISTRIBUTION WIDTH SD 40.3 fL (36.4-46.3); WHITE BLOOD COUNT 7.89 K/uL (4.8-10.8)
[2017-08-10 07:46] LABS: CALCIUM 8.7 mg/dl (8.5-10.1); CREATININE 0.75 mg/dl (0.60-1.20); POTASSIUM 4.1 mmol/L (3.5-5.1)
[2017-08-10] MEDS: ENOXAPARIN 40 MG/0.4 ML SYR SC SCH (08:00)
[2017-08-10] MEDS: ASPIRIN 325 MG ECTAB PO SCH (08:24)
[2017-08-10] MEDS: LISINOPRIL 5 MG TAB PO SCH (08:24)
[2017-08-10] MEDS: DOXYCYCLINE HYCLATE 100 MG CAP PO SCH ×2 (08:25→20:26)
[2017-08-10] MEDS: INSULIN GLARGINE SOLOSTAR 100 UNITS/ML 3 ML PEN SC SCH ×2 (08:33→20:25)
[2017-08-10] MEDS: INSULIN ASPART 100 UNITS/ML 3 ML PEN SC SCH ×4 (08:33→20:24)
[2017-08-10] MEDS ORDERED: INSULIN GLARGINE SOLOSTAR 100 UNITS/ML 3 ML PEN SC SCH ×2 (09:00)
[2017-08-10 14:54] VITALS: BP 161/92; PULSE 56; TEMP 36.7; O2SAT 95
[2017-08-10] MEDS ORDERED: LEVALBUTEROL 0.63MG/3 ML NEB INH PRN (16:30)
[2017-08-10] MEDS ORDERED: LEVALBUTEROL 0.63MG/3 ML NEB INH ONE (16:30)
[2017-08-10 16:51] VITALS: PULSE 55; O2SAT 97
[2017-08-10] MEDS: CEFTRIAXONE SOD INJ 2,000 MG in DEXTROSE 5% 50ML 50 ML IV SCH (17:14)
--- NOTE | 2017-08-10 19:52 | Progress Note ---
Medicine Progress Note Date & Time of Visit: Aug 10, 2017 at 15:40 . Subjective CC: Follow-up visit for pneumonia, elevated blood sugars, elevated blood pressure. HPI: Feels better. No fever. Cough improved, but feels congested. No chest pain. Blood sugars better. ROS: General- as noted above in HPI Resp- as noted above in HPI Cardiac- as noted above in HPI GI- no nausea, no vomiting, no diarrhea - no dysuria, no difficulty voiding . Objective Last 8 Hrs Date Time Temp Pulse Resp B/P (MAP) Pulse Ox O2 Delivery O2 Flow Rate FiO2 08/10/17 16:51 55 16 97 Room Air 08/10/17 16:25 Room Air 08/10/17 14:54 36.7 56 18 161/92 (115) 95 Room Air Physical Exam: General- lying in bed; no distress Lungs- few rhonchi; no respiratory distress Cardiovascular- RRR; no gallop; no JVD; no pretibial edema Abdomen- + bowel sounds, soft, nontender Extremities- no cyanosis; no calf tenderness Neuro- alert, oriented Skin- warm & dry . Laboratory Results: Last 24 Hours Test 08/09/17 20:05 08/10/17 06:56 08/10/17 07:38 08/10/17 11:31 Bedside Glucose 165 mg/dl 228 mg/dl 278 mg/dl White Blood Count 7.89 K/uL Red Blood Count 5.04 M/uL Hemoglobin 14.7 g/dL Hematocrit 43.4 % Mean Corpuscular Volume 86.1 fL Mean Corpuscular Hemoglobin 29.2 pg Mean Corpuscular Hemoglobin Concent 33.9 g/dl Platelet Count 316 K/uL Mean Platelet Volume 9.8 fL Neutrophils (%) (Auto) 59.5 % Lymphocytes (%) (Auto) 26.1 % Monocytes (%) (Auto) 9.9 % Eosinophils (%) (Auto) 3.8 % Basophils (%) (Auto) 0.4 % Neutrophils # (Auto) 4.70 K/uL Lymphocytes # (Auto) 2.06 K/uL Monocytes # (Auto) 0.78 K/uL Eosinophils # (Auto) 0.30 K/uL Basophils # (Auto) 0.03 K/uL RDW Standard Deviation 40.3 fL RDW Coefficient of Variation 12.9 % Immature Granulocyte % (Auto) 0.3 % Immature Granulocyte # (Auto) 0.02 K/uL Sodium Level 137 mmol/L Potassium Level 4.1 mmol/L Chloride Level 106 mmol/L Carbon Dioxide Level 24 mmol/L Anion Gap 7.0 mmol/L Blood Urea Nitrogen 18 mg/dl Creatinine 0.75 mg/dl Est Creatinine Clear Calc Drug Dose 94.3 ml/min Estimated GFR () 98.3 Estimated GFR (Non- 84.8 BUN/Creatinine Ratio 23.9 Random Glucose 214 mg/dl Calcium Level 8.7 mg/dl Magnesium Level 2.0 mg/dl Test 08/10/17 16:31 Bedside Glucose 124 mg/dl Assessment & Plan PNEUMONIA Presented to ED with cough. Influenza Ag and PCR negative. Chest x-ray showed left mid-lung infiltrate. CT chest confirmed lingular infiltrate. Continue doxycycline and ceftriaxone. CHEST DISCOMFORT Associated with coughing. Troponins negative. EKG showed non-specific ST / T-wave changes laterally. Echo showed mild LVH, no segmental wall motion abnormalities. CTA chest negative for PE. HYPERTENSIVE URGENCY History of "white coat hypertension." Had been on lisinopril in past, but it was discontinued.BP 212/125 in ED. Lisinopril restarted. BP this morning 154/82. Follow and titrate therapy. CEREBROVASCULAR DISEASE History of stroke several years ago. Not taking aspirin or statin at this time. ESOPHAGEAL THICKENING Mild esophageal wall thickening noted on CT chest. No reflux symptoms or dysphagia. Outpatient EGD recommended. DM TYPE 2 WITH HYPERGLYCEMIA History of DM type 2, reportedly well-controlled, managed with metformin at home. Random blood sugar in ED was 363. Hgb A1C = 12.3. Hold metformin during hospital stay. Lantus / NovoLog per protocol. FBS today = 228. VTE PROPHYLAXIS SQ enoxaparin. Ambulate. DISPOSITION Expected discharge to home. Medical follow-up with Dr. Hawthorne. . Current Inpatient Medications: Current Inpatient Medications Medications (Trade) Dose Ordered Sig/Arsen Route Start Time Stop Time Status Last Admin Dose Admin Aspirin (Ecotrin Tab) 325 mg QAM PO 08/09/17 09:00 09/08/17 08:59 08/10/17 08:24 325 MG Lisinopril (Zestril Tab) 5 mg QAM PO 08/09/17 09:00 09/08/17 08:59 08/10/17 08:24 5 MG Doxycycline Hyclate (Vibramycin Cap) 100 mg BID PO 08/09/17 21:00 08/16/17 20:59 08/10/17 08:25 100 MG Enoxaparin Sodium (Lovenox Inj) 40 mg Q24H SC 08/09/17 08:00 09/08/17 07:59 08/09/17 08:47 40 MG Acetaminophen (Tylenol Tab) 650 mg Q4H PRN PO 08/09/17 03:45 09/08/17 03:44 Nitroglycerin (Nitrostat Tab) 0.4 mg UD PRN SL 08/09/17 03:45 09/08/17 03:44 Insulin Aspart (novoLOG ASPART) SLIDING SCALE If C... ACHS SC 08/09/17 11:00 09/08/17 10:59 08/10/17 12:34 9 UNITS Glucose (Glucose 40% Gel) 15-30 GRAMS 15 GRAMS... UD PRN PO 08/09/17 03:45 09/08/17 03:44 Glucose (Glucose Chew Tab) 4-8 Tablets 4 Tabl... UD PRN PO 08/09/17 03:45 09/08/17 03:44 Dextrose (Dextrose 50% 50ML Syringe) 25-50ML OF 50% DW IV FOR... UD PRN IV 08/09/17 03:45 09/08/17 03:44 Glucagon (Glucagon Inj) 1 mg UD PRN SQ 08/09/17 03:45 09/08/17 03:44 Lorazepam (Ativan Inj) 0.5 mg Q4H PRN IV 08/09/17 03:45 09/08/17 03:44 Tramadol HCl (Ultram Tab) not relieved ... Q6H PRN PO 08/09/17 03:45 09/08/17 03:44 Morphine Sulfate (MoRPHine SULFATE INJ) 4 mg Q3H PRN IV 08/09/17 03:45 08/23/17 03:44 Albuterol/ Ipratropium (Duoneb) 3 ml Q2H PRN INH 08/09/17 03:45 09/08/17 03:44 Prochlorperazine Edisylate 5 mg/ Syringe 5 ml @ 5 mls/min Q6H PRN IV 08/09/17 03:45 09/08/17 03:44 Ioversol (Optiray 320) 100 ml UD PRN IV 08/09/17 05:00 08/13/17 04:59 Lorazepam 0.5 mg/ Syringe 1 ml @ 1 mls/min Q4H PRN IV 08/09/17 05:00 09/08/17 04:59 Miscellaneous (Iv Fluids Completed) 1 ea PRN PRN N/A 08/09/17 08:15 08/09/18 08:14 Ceftriaxone Sodium 2000 mg/ Dextrose 70 ml @ 100 mls/hr Q24H IV 08/09/17 18:00 08/16/17 17:59 08/10/17 17:14 100 MLS/HR Insulin Glargine (Lantus Solostar Pen) BSG LANTUS SQ < ... BID SC 08/09/17 21:00 09/08/17 20:59 08/10/17 08:33 14 UNITS Levalbuterol (Xopenex 0.63 Mg/ 3 Ml Neb) 0.63 mg Q6H PRN INH 08/10/17 16:30 09/09/17 16:29 Guaifenesin (Robitussin Sugar Free Syrup) 100 mg Q6H PRN PO 08/10/17 16:30 09/09/17 16:29
[2017-08-10] MEDS: ALBUT/IPRATROP 3MG/0.5MG NEB 3 ML VIAL INH PRN (20:37)
[2017-08-10 20:39] VITALS: PULSE 87; O2SAT 97
[2017-08-10] MEDS: GUAIFENESIN SUGAR FREE 100 MG/5 ML UDC PO PRN (21:13)
[2017-08-10 22:52] VITALS: BP 143/78; PULSE 94; TEMP 36.9; O2SAT 97
[2017-08-11 07:17] VITALS: BP 148/88; PULSE 77; TEMP 36.7; O2SAT 93
[2017-08-11 07:30] VITALS: PULSE 69; O2SAT 96
[2017-08-11] MEDS: ALBUT/IPRATROP 3MG/0.5MG NEB 3 ML VIAL INH PRN (07:30)
[2017-08-11] MEDS: DOXYCYCLINE HYCLATE 100 MG CAP PO SCH (07:53)
[2017-08-11] MEDS: LISINOPRIL 5 MG TAB PO SCH (07:53)
[2017-08-11] MEDS: ENOXAPARIN 40 MG/0.4 ML SYR SC SCH (07:53)
[2017-08-11] MEDS: GUAIFENESIN SUGAR FREE 100 MG/5 ML UDC PO PRN (07:55)
[2017-08-11] MEDS: INSULIN ASPART 100 UNITS/ML 3 ML PEN SC SCH ×2 (08:01→11:56)
[2017-08-11] MEDS: INSULIN GLARGINE SOLOSTAR 100 UNITS/ML 3 ML PEN SC SCH (08:02)
[2017-08-11] MEDS: ASPIRIN 325 MG ECTAB PO SCH (11:56)
[2017-08-11 13:13] VITALS: Ht 170.2 cm; Wt 102.0 kg
[2017-08-11 15:13] VITALS: BP 172/97; PULSE 61; TEMP 36.6; O2SAT 97
[2017-08-11 15:47] VITALS: BP 172/97; PULSE 61; TEMP 36.6; O2SAT 97
--- NOTE | 2017-08-11 15:55 | Progress Note ---
Medicine Progress Note Date & Time of Visit: Aug 11, 2017 at 15:55 . Subjective Feels well. No fever. Cough essentially resolved. No further chest pain. No nausea, vomiting, diarrhea. . Objective Last 8 Hrs Date Time Temp Pulse Resp B/P (MAP) Pulse Ox O2 Delivery O2 Flow Rate FiO2 08/11/17 15:47 36.6 61 18 97 Room Air 08/11/17 15:13 36.6 61 18 172/97 (122) 97 Room Air 08/11/17 08:20 Room Air Physical Exam: General-no distress Lungs- clear; no respiratory distress Cardiovascular- RRR; no gallop; no JVD; no pretibial edema Abdomen- + bowel sounds, soft, nontender Extremities- no cyanosis; no calf tenderness Neuro- alert, oriented Skin- warm & dry . Laboratory Results: Last 24 Hours Test 08/10/17 16:31 08/10/17 20:07 08/11/17 07:39 08/11/17 11:32 Bedside Glucose 124 mg/dl 222 mg/dl 192 mg/dl 238 mg/dl Assessment & Plan PNEUMONIA Presented to ED with cough. Influenza Ag and PCR negative. Chest x-ray showed left mid-lung infiltrate. CT chest confirmed lingular infiltrate. Treated with doxycycline and ceftriaxone with improvement. Discharge on doxycycline to complete 7 day course of treatment. Follow-up chest x-ray recommended in 4-6 weeks to assure resolution. CHEST DISCOMFORT CP associated with coughing. Troponins negative. EKG showed non-specific ST / T-wave changes laterally. Echo showed mild LVH, no segmental wall motion abnormalities. CTA chest negative for PE. Resolved. No further evaluation necessary. HYPERTENSIVE URGENCY History of "white coat hypertension." Had been on lisinopril in past, but it was discontinued.BP 212/125 in ED. Lisinopril restarted. BP's fluctuated, but generally better. BP morning of discharge was 148/88. Discharged on lisinopril 5 mg daily. Follow and titrate Rx. CEREBROVASCULAR DISEASE History of stroke several years ago. Not taking aspirin or statin at this time. LDL-c = 81. No need for statin at this time. Aspirin 81 mg daily recommended. ESOPHAGEAL THICKENING Mild esophageal wall thickening noted on CT chest. No reflux symptoms or dysphagia. Outpatient EGD recommended. DM TYPE 2 WITH HYPERGLYCEMIA History of DM type 2, reportedly well-controlled, managed with metformin at home. Random blood sugar in ED was 363. Hgb A1C = 12.3. Held metformin during hospital stay. Lantus / NovoLog per protocol. FBS today = 192. Seen in consultation by diabetes team. Patient not interested in insulin therapy at home. Increase metformin to 1000 mg BID. Follow blood sugars. Consider adding another agent if blood sugars remain elevated, perhaps sulfonylurea next. Ongoing education / support. VTE PROPHYLAXIS SQ enoxaparin. Ambulate. DISPOSITION Discharge to home. Current PCP is Dr. Hawthorne. May be switching primary care to Dr. Lopez because family medical insurance is changing. . Current Inpatient Medications: Current Inpatient Medications Medications (Trade) Dose Ordered Sig/Arsen Route Start Time Stop Time Status Last Admin Dose Admin Aspirin (Ecotrin Tab) 325 mg QAM PO 08/09/17 09:00 09/08/17 08:59 08/11/17 11:56 325 MG Lisinopril (Zestril Tab) 5 mg QAM PO 08/09/17 09:00 09/08/17 08:59 08/11/17 07:53 5 MG Doxycycline Hyclate (Vibramycin Cap) 100 mg BID PO 08/09/17 21:00 08/16/17 20:59 08/11/17 07:53 100 MG Enoxaparin Sodium (Lovenox Inj) 40 mg Q24H SC 08/09/17 08:00 09/08/17 07:59 08/09/17 08:47 40 MG Acetaminophen (Tylenol Tab) 650 mg Q4H PRN PO 08/09/17 03:45 09/08/17 03:44 Nitroglycerin (Nitrostat Tab) 0.4 mg UD PRN SL 08/09/17 03:45 09/08/17 03:44 Insulin Aspart (novoLOG ASPART) SLIDING SCALE If C... ACHS SC 08/09/17 11:00 09/08/17 10:59 08/11/17 11:56 5 UNITS Glucose (Glucose 40% Gel) 15-30 GRAMS 15 GRAMS... UD PRN PO 08/09/17 03:45 09/08/17 03:44 Glucose (Glucose Chew Tab) 4-8 Tablets 4 Tabl... UD PRN PO 08/09/17 03:45 09/08/17 03:44 Dextrose (Dextrose 50% 50ML Syringe) 25-50ML OF 50% DW IV FOR... UD PRN IV 08/09/17 03:45 09/08/17 03:44 Glucagon (Glucagon Inj) 1 mg UD PRN SQ 08/09/17 03:45 09/08/17 03:44 Lorazepam (Ativan Inj) 0.5 mg Q4H PRN IV 08/09/17 03:45 09/08/17 03:44 Tramadol HCl (Ultram Tab) not relieved ... Q6H PRN PO 08/09/17 03:45 09/08/17 03:44 Morphine Sulfate (MoRPHine SULFATE INJ) 4 mg Q3H PRN IV 08/09/17 03:45 08/23/17 03:44 Albuterol/ Ipratropium (Duoneb) 3 ml Q2H PRN INH 08/09/17 03:45 09/08/17 03:44 08/11/17 07:30 3 ML Prochlorperazine Edisylate 5 mg/ Syringe 5 ml @ 5 mls/min Q6H PRN IV 08/09/17 03:45 09/08/17 03:44 Ioversol (Optiray 320) 100 ml UD PRN IV 08/09/17 05:00 08/13/17 04:59 Lorazepam 0.5 mg/ Syringe 1 ml @ 1 mls/min Q4H PRN IV 08/09/17 05:00 09/08/17 04:59 Miscellaneous (Iv Fluids Completed) 1 ea PRN PRN N/A 08/09/17 08:15 08/09/18 08:14 Ceftriaxone Sodium 2000 mg/ Dextrose 70 ml @ 100 mls/hr Q24H IV 08/09/17 18:00 08/16/17 17:59 08/10/17 17:14 100 MLS/HR Insulin Glargine (Lantus Solostar Pen) BSG LANTUS SQ < ... BID SC 08/09/17 21:00 09/08/17 20:59 08/11/17 08:02 14 UNITS Levalbuterol (Xopenex 0.63 Mg/ 3 Ml Neb) 0.63 mg Q6H PRN INH 08/10/17 16:30 09/09/17 16:29 Guaifenesin (Robitussin Sugar Free Syrup) 100 mg Q6H PRN PO 08/10/17 16:30 09/09/17 16:29 08/11/17 07:55 100 MG
[2017-08-11] MEDS ORDERED: GLC500 PO (15:58)
[2017-08-11] MEDS ORDERED: LSN5 PO (15:58)
[2017-08-11] MEDS ORDERED: RBTUDL5 PO (15:58)
[2017-08-11] MEDS ORDERED: ASPI-428 PO (15:58)
[2017-08-11] MEDS ORDERED: DXY100 PO (15:58)
--- NOTE | 2017-08-11 16:07 | Discharge Instructions ---
Discharge Instructions Date of Service Aug 11, 2017. Admission Reason for Admission: cough, chest discomfort . Discharge Discharge Diagnosis / Problem: pneumonia, elevated blood pressure Discharge Goals Goal(s): Decrease discomfort, Improve disease control Activity Recommendations Activity Limitations: resume your previous activity . Instructions / Follow-Up Instructions / Follow-Up APPOINTMENTS: PRIMARY CARE Dr. Hawthorne or Dr. Lopez Please call their office for appointment. OTHER INSTRUCTIONS: Chest x-ray showed pneumonia. Take doxycycline 100 mg twice a day until finished. Please have repeat chest x-ray done in 4-6 weeks to make certain that pneumonia clears up. Your blood pressures were too high. Take lisinopril (Prinivil or Zestril) 5 mg daily. Your blood sugars were too high. Increase metformin (Glucophage) to 1000 mg twice a day with meals. Take coated aspirin (Ecotrin) 81 mg daily to help prevent heart attacks and strokes. CT scan of chest showed some mild thickening of esophagus. This may or may not be significant. Upper endoscopy (EGD) recommended to make sure that everything is OK. Please have your doctor make a referral for you. Seek medical attention if you have: * temperature above 101 * chest pain or trouble breathing * abdominal pain, nausea, vomiting * diarrhea, dark stools or bloody stools * any unanswered questions or concerns Call 251 if symptoms are severe. Call if you have any questions or problems. My cell # is [phone]. You can also reach a [facility] hospitalist on duty at [facility] 24 hours a day by calling [phone]. Please take good care of yourself. Joel Desai . Current Hospital Diet Patient's current hospital diet: AHA Diet (Heart Healthy), Diabetes Type 2 Diet Discharge Diet Recommended Diet: AHA Diet (Heart Healthy), Diabetes Type 2 Diet Procedures Procedures Performed: Chest x-ray and CT of chest showed pneumonia. CT of chest also showed some mild thickening of esophagus. Pending Studies Studies pending at discharge: no Laboratory Results Hemoglobin A1c Test 08/09/17 01:20 Range/Units Estimated Average Glucose 306 mg/dl Hemoglobin A1c 12.3 H 4.5-5.6 % Lipid Panel Test 08/09/17 04:10 Range/Units Triglycerides Level 212 H 0-150 mg/dl Cholesterol Level 151 0-200 mg/dl HDL Cholesterol 28 mg/dl Cholesterol/HDL Ratio 5.4 LDL Cholesterol, Calculated 81 mg/dl Medical Emergencies . Who to Call and When: Medical Emergencies: If at any time you feel your situation is an emergency, please call 911 immediately. . Non-Emergent Contact Non-Emergency issues call your: Primary Care Provider, Hospital Doctor . . "Provider Documentation" section prepared by Joel Desai. . VTE Core Measure Inpt VTE Proph given/why not?: Enoxaparin (Lovenox)SQ
--- NOTE | 2017-08-12 08:57 | Discharge Summary ---
Discharge Summary Date of Service Aug 12, 2017. Discharge Summary Admission Date: Aug 09, 2017 at 03:02 Discharge Date: Aug 11, 2017 Principal Diagnosis: pneumonia, left lingula, community-acquired OTHER ACUTE DIAGNOSES: diabetes mellitus, type 2, poorly controlled hypertensive urgency chest pain . Secondary Diagnoses/Problems: Chronic and Resolved Medical Problems: (1) Cerebrovascular disease Permanent Comment: history of stroke Status: Chronic (2) Diabetes mellitus, type 2 Status: Chronic (3) Hypertension Permanent Comment: Status: Chronic . Procedures: cardiac monitoring CTA chest echocardiogram IV meds . Pending Studies/Follow-Up: Please check follow-up chest x-ray in 4-6 weeks regarding: pneumonia. . Medication Reconciliation New Medications: Aspirin (Ecotrin Low Strength) 81 Mg Tab 81 MG PO DAILY, #30 TAB 5 Refills No prescription necessary. Metformin HCl (Metformin HCl) 500 Mg Tab 1000 MG PO BIDM, #120 TAB 5 Refills Doxycycline Hyclate (Doxycycline Hyclate) 100 Mg Cap 100 MG PO BID, #9 CAP Guaifenesin (Robitussin) 100 Mg/5 Ml [place] 100 MG PO Q6H PRN for Cough, #1 BTL Sugar-free. No prescripton necessary. Lisinopril (Lisinopril) 5 Mg Tab 5 MG PO QAM, #30 TAB 5 Refills Discontinued Medications: Metformin Hcl (Glucophage) 500 Mg Tab 500 MG PO BID, TAB Admission Information HPI (per Admitting provider): History obtained from patient, family, ER provider. Medical history is significant for CVA, hypertension (currently not on meds), DM2 on oral medications. In the last few days, the patient noted sinus congestion symptoms going to her chest, later complaining of chest tightness, cough productive of yellow sputum, unable to catch her breath. May have been around sick people. Denies flu-like symptoms. Chest tightness from congestion. Denies aspiration. Patient was brought to the Emergency Room. Initial chest tightness currently resolved. MEDICAL HISTORY: As above. She had a stroke in the right side of her body in 2006, where she was confined in [place]. No TPA. She stopped her lisinopril 6 months ago after PCP told her she could because her blood pressure had been good after significant weight loss. Patient thinks she suffers from "white coat hypertension. Usual blood sugars at home 130s as per patient. Admits to not taking her blood sugars regularly. Last hemoglobin A1c from last year was 6 as per patient. Has not had recent seasonal flu vaccines. . Physical Exam (per Admitting): VITAL SIGNS: Blood pressure was noted to be 212/125 later 160/80, WV 80, RR 24 T 37 sats 98% on room air. GENERAL: Noted to be slightly anxious. Obese, pleasant, no distress. SKIN: Normal color. Warm. HEENT: [place] palpebral conjunctivae. No ptosis. Dry mucosa. NECK: Short neck. Nontender. CHEST: No anterior chest wall tenderness. Occasional wheeze. HEART: Regular rate and rhythm. No murmur. ABDOMEN: Some distension and nontender. EXTREMITIES: No edema. No gross deformities. No tenderness. NEUROLOGIC: Coherent, no gross focality. . Hospital Course PNEUMONIA Presented to ED with cough. Influenza Ag and PCR negative. Chest x-ray showed left mid-lung infiltrate. CT chest confirmed lingular infiltrate. Treated with doxycycline and ceftriaxone with improvement. Discharge on doxycycline to complete 7 day course of treatment. Follow-up chest x-ray recommended in 4-6 weeks to assure resolution. CHEST DISCOMFORT CP associated with coughing. Troponins negative. EKG showed non-specific ST / T-wave changes laterally. Echo showed mild LVH, no segmental wall motion abnormalities. CTA chest negative for PE. Resolved. No further evaluation necessary. HYPERTENSIVE URGENCY History of "white coat hypertension." Had been on lisinopril in past, but it was discontinued.BP 212/125 in ED. Lisinopril restarted. BP's fluctuated, but generally better. BP morning of discharge was 148/88. Discharged on lisinopril 5 mg daily. Follow and titrate Rx. CEREBROVASCULAR DISEASE History of stroke several years ago. Not taking aspirin or statin at this time. LDL-c = 81. No need for statin at this time. Aspirin 81 mg daily recommended. ESOPHAGEAL THICKENING Mild esophageal wall thickening noted on CT chest. No reflux symptoms or dysphagia. Outpatient EGD recommended. DM TYPE 2 WITH HYPERGLYCEMIA History of DM type 2, reportedly well-controlled, managed with metformin at home. Random blood sugar in ED was 363. Hgb A1C = 12.3. Held metformin during hospital stay. Lantus / NovoLog per protocol. FBS today = 192. Seen in consultation by diabetes team. Patient not interested in insulin therapy at home. Increase metformin to 1000 mg BID. Follow blood sugars. Consider adding another agent if blood sugars remain elevated, perhaps sulfonylurea next. Ongoing education / support. VTE PROPHYLAXIS SQ enoxaparin. Ambulate. DISPOSITION Discharge to home. Current PCP is Dr. Hawthorne. May be switching primary care to Dr. Lopez because family medical insurance is changing. . Discharge Instructions Date of Service Aug 11, 2017. Admission Reason for Admission: cough, chest discomfort . Discharge Discharge Diagnosis / Problem: pneumonia, elevated blood pressure Discharge Goals Goal(s): Decrease discomfort, Improve disease control Activity Recommendations Activity Limitations: resume your previous activity . Instructions / Follow-Up Instructions / Follow-Up APPOINTMENTS: PRIMARY CARE Dr. Hawthorne or Dr. Lopez Please call their office for appointment. OTHER INSTRUCTIONS: Chest x-ray showed pneumonia. Take doxycycline 100 mg twice a day until finished. Please have repeat chest x-ray done in 4-6 weeks to make certain that pneumonia clears up. Your blood pressures were too high. Take lisinopril (Prinivil or Zestril) 5 mg daily. Your blood sugars were too high. Increase metformin (Glucophage) to 1000 mg twice a day with meals. Take coated aspirin (Ecotrin) 81 mg daily to help prevent heart attacks and strokes. CT scan of chest showed some mild thickening of esophagus. This may or may not be significant. Upper endoscopy (EGD) recommended to make sure that everything is OK. Please have your doctor make a referral for you. Seek medical attention if you have: * temperature above 101 * chest pain or trouble breathing * abdominal pain, nausea, vomiting * diarrhea, dark stools or bloody stools * any unanswered questions or concerns Call 911 if symptoms are severe. Call if you have any questions or problems. My cell # is [phone]. You can also reach a [facility] hospitalist on duty at [facility] 24 hours a day by calling [phone]. Please take good care of yourself. Joel Desai . Current Hospital Diet Patient's current hospital diet: AHA Diet (Heart Healthy), Diabetes Type 2 Diet Discharge Diet Recommended Diet: AHA Diet (Heart Healthy), Diabetes Type 2 Diet Procedures Procedures Performed: Chest x-ray and CT of chest showed pneumonia. CT of chest also showed some mild thickening of esophagus. Pending Studies Studies pending at discharge: no Laboratory Results Hemoglobin A1c Test 08/09/17 01:20 Range/Units Estimated Average Glucose 306 mg/dl Hemoglobin A1c 12.3 H 4.5-5.6 % Lipid Panel Test 08/09/17 04:10 Range/Units Triglycerides Level 212 H 0-150 mg/dl Cholesterol Level 151 0-200 mg/dl HDL Cholesterol 28 mg/dl Cholesterol/HDL Ratio 5.4 LDL Cholesterol, Calculated 81 mg/dl Medical Emergencies . Who to Call and When: Medical Emergencies: If at any time you feel your situation is an emergency, please call 911 immediately. . Non-Emergent Contact Non-Emergency issues call your: Primary Care Provider, Hospital Doctor . . "Provider Documentation" section prepared by Joel Desai. . VTE Core Measure Inpt VTE Proph given/why not?: Enoxaparin (Lovenox)SQ . Additional Copies To John Lopez D.O.; Pola Hawthorne M.D.
[2017-08-12] MEDS ORDERED: [UNRECOGNIZED DRUG - CODE] EXT (09:01)
[2017-08-12] MEDS ORDERED: GLUCTES EXT (09:09)
== END 2017-08-11 16:43 | disposition home or self-care (01) ==
LOC: C.EDB 00:27 → C.2T 03:02 → ENRESERV 03:22 → OBSVTOIN 16:49 → INTOOBSV 16:49 → ENRESERV 16:59 → C.MS2W 17:57
PROVIDERS: ADMIT Hospitalist; ATTEND Hospitalist
DX: J18.9 Pneumonia, unspecified organism (principal); E11.9 Type 2 diabetes mellitus without complications; I10 Essential (primary) hypertension; R07.9 Chest pain, unspecified; Z86.73 Personal history of transient ischemic attack (TIA), and cerebral infarction without residual deficits; Z79.82 Long term (current) use of aspirin